=== PATIENT | female | born 1975 | race Caucasian/White ===

== ENCOUNTER 2019-07-29 09:49 | Emergency (ER) | payer OTHER ==
[~2019-07-29] VITALS: Ht 167.6 cm; Wt 97.5 kg
[2019-07-29 11:55] LABS: ABSOLUTE BASOPHILS 0.1 thou/uL (0.0-0.2); ABSOLUTE EOSINOPHILS 0.4 thou/uL (0.0-0.7); ABSOLUTE LYMPHOCYTES 2.6 thou/uL (0.8-5.3); ABSOLUTE MONOCYTES 0.6 thou/uL (0.0-1.2); BASOPHILS 0.9 %; EOSINOPHILS 4.5 %; HEMATOCRIT 39.3 % (37.0-47.0); HEMOGLOBIN 13.7 gm/dL (12.0-15.0); LYMPHOCYTES 30.1 %; MCH 32.3 pg (26.0-34.0); MCHC 34.9 g/dL (28.0-37.0); MCV 92.4 fL (80.0-100.0); MONOCYTES 6.4 %; MPV 8.7 fl. (7.2-11.1); NUCLEATED RBCS 0 /100WBC; PLATELET COUNT* 277 thou/uL (150-400); POLYS 58.1 %; RBC 4.25 mil/uL (4.20-5.00); RDW-CV 12.4 % (10.5-14.5); WBC 8.7 thou/uL (4.0-11.0)
[2019-07-29 12:05] LABS: CALCIUM 8.5 mg/dL (8.5-10.1); CREATININE 0.8 mg/dL (0.6-1.3); POTASSIUM 3.9 mmol/L (3.5-5.1)
[2019-07-29 12:09] LABS: ALBUMIN 3.9 g/dL (3.4-5.0); TOTAL BILIRUBIN 0.5 mg/dL (<0.1-1.0); TOTAL PROTEIN 7.9 g/dL (6.4-8.2)
[2019-07-29 12:43] VITALS: BP 116/73
--- NOTE | 2019-07-30 10:33 | EKG ---
[place] [address] ELECTROCARDIOGRAM REPORT Name: KEVIN RODRIGUEZ Room: [facility]#: [id number] Admission: 07/29/19 Attend Phys: Discharge: 07/29/19 Date of : 79 Date of Service: 07/29/19 [facility] Report #: [id number] THIS REPORT FOR: //name// [facility] ED Test Date: 2019-07-29 Test Time: 10:37:43 Pat Name: KEVIN RODRIGUEZ Department: Room: Gender: Director Cpg: : [id number] Requested By: Nina Valdez Order Number: [id number] MD: Main Liu Measurements Intervals [place] Rate: 70 P: 16 VT: 169 QRS: 42 QRSD: 74 T: 21 QT: 394 QTc: 426 Interpretive Statements Sinus rhythm No previous ECG available for comparison Electronically Signed On 07-30-2019 10:31:57 CDT by Main Liu [email or web address] <ELECTRONICALLY SIGNED> By: Main Liu MD, [facility] 07/30/19 1031 1037 [facility] Main Liu MD, FACC /EPI
== END 2019-07-29 12:43 | disposition home or self-care (01) ==
LOC: M.ERS 09:49
PROVIDERS: Personal Emergency Response Attendant
DX: R00.2 Palpitations (principal); Z88.1 Allergy status to other antibiotic agents